=== PATIENT | male | born 1945 | race Caucasian/White ===

== ENCOUNTER → 2018-02-15 | Outpatient (CLI) | payer OTHER | LOC: LAB 15:47 | PROVIDERS: ATTEND Internal Medicine Gastroenterology | DX: K64.0 First degree hemorrhoids (principal) | CPT/HCPCS: 82274 ==

== ENCOUNTER 2023-05-30 11:47 | Inpatient (IN) ==
--- NOTE | 2023-05-30 12:09 | DR.EXTPAIN ---
HPI Time seen Time Seen by Provider: 05/30/23 12:08 Complaint/Symptoms Chief Complaint Doctor Comments: 78 y/o male presents with 3-4 weeks of left inguinal swelling, getting worse. Saw Dr Zuñiga, 05/10, was referred to Dr Morse. Saw him 5 days ago, per his note, he diagnosed recurrent L inguinal he rnia, adjacent to prior hernia repair. Ordered CT, not done yet. Pt with persistent pain, swelling of left groin region. Having erythema develop. Pain is sharp, does not radiate, worse with palpation. Pain helped with percocet. Denies nausea, vomiting. Moving bowels, but having degree of constipation. No fever, had episode of chills after starting percocet, few days ago. Nurses notes reviewed Nurses Notes Review: Yes Source History Provided: Patient and Significant Other PMH PMH Past Medical History: Yes Past Medical History Comment: HTN, hypothyroidism Past Surgical History: Yes Past Surgical History Comment: Appendectomy, tonsillectomy, abd hernia Family History History of Family Medical Conditions: Yes Family Medical History: Hypertension Social History Does patient currently use any type of tobacco product: Yes Type of Tobacco Use: Cigarettes Alcohol Use: None Do you use any recreational Drugs:: No ROS Review of Systems Constitutional: No Symptoms Reported Eyes: No Symptoms Reported ENTM: No Symptoms Reported Respiratoy: No Symptoms Reported Cardiovascular: No Symptoms Reported Gastrointestinal/Abdominal: See HPI Genitourinary: No Symptoms Reported Neurological: No Symptoms Reported Musculoskeletal: No Symptoms Reported Integumentary: No Symptoms Reported All Other Systems: Reviewed and Negative PE Vital Signs Vitals: Vital Signs Temperature 97.7 F Pulse Rate [Left] 77 Pulse Rate 77 Respiratory Rate 19 Blood Pressure 135/65 O2 Sat by Pulse Oximetry 94 General General Appearance: Alert and In No Apparent Distress Eyes Eye exam: PERRL and EOMI Neck Neck Exam: Normal Inspection Respiratory Respiratory Exam: Normal Lung Sounds Bilat; negative Accessory Muscle Use or Respiratory Distress Cardiovascular Cardiovascular Exam: Regular Rate, Normal Rhythm and Normal Heart Sounds Abdominal Exam Abdominal Exam: Normal Bowel Sounds, Soft and Tenderness (L groin - + large soft tissue swelling, with ring of erythema around it. ) Extremities Extremities Exam: Normal Inspection; negative Edema Neurological Neurological Exam: Alert, Oriented X3 and CN II-XII Intact; negative Motor Sensory Deficit Skin Skin Exam: Warm and Dry COURSE Treatment Treatment: 78 y/o male with worsening swelling, erythema of LLQ/groin region. Dx'd with L inguinal hernia 5 days ago. W/u initiated. Pt given IV fluids. 1400 - was planning to admit with a probable L inguinal incarcerated hernia. Official CT report states more likely intra abdominal wall abscess with large air collection. Surgery consulted, Dr Clemens coming to see. Given IV zosyn for antibiotic coverage. Will admit to his attending, Dr Zuñiga. [facility] Labs Reviewed Laboratory Results Reviewed?: Yes Result Diagrams: 05/30/23 12:27 05/30/23 12:27 Laboratory: WBC 7.9 X10^3/uL (3.6-10.0) 05/30/23 12: RBC 4.24 X10^6/uL (4.7-6.0) L 05/30/23 12: Hgb 12.3 g/dL (13.5-18.0) L 05/30/23 12: Hct 36.3 % (42.0-54.0) L 05/30/23 12: MCV 85.7 fL (80.0-100.0) 05/30/23 12: MCH 29.0 pg (27.0-34.0) 05/30/23 12: MCHC 33.8 g/dL (33.0-35.0) 05/30/23 12: RDW 15.1 % (11.6-16.5) 05/30/23 12: Plt Count 226 X10^3/uL (150.0-450.0) 05/30/23 12: MPV 8.4 fL (7.4-11.0) 05/30/23 12: Neut % (Auto) 86.3 % (42.0-75.0) H 05/30/23 12: Lymph % (Auto) 6.0 % (21.0-51.0) L 05/30/23 12: Humphreys % (Auto) 7.1 % (0.0-13.0) 05/30/23 12: Eos % (Auto) 0.5 % (0.9-2.9) L 05/30/23 12: Baso % (Auto) 0.1 % (0.2-1.0) L 05/30/23 12:27 Neut # (Auto) 6.8 x10^3/uL (2.2-4.8) H 05/30/23 12:27 Lymph # (Auto) 0.5 X10^3/uL (1.3-2.9) L 05/30/23 12:27 Humphreys # (Auto) 0.6 x10^3/uL (0.3-0.8) 05/30/23 12:27 Eos # (Auto) 0.0 x10^3/uL (0.0-0.2) 05/30/23 12:27 Baso # (Auto) 0.0 X10^3/uL (0.0-0.1) 05/30/23 12:27 Absolute Nucleated RBC 0.2 /100WBC 05/30/23 12:27 Sodium 134 mmol/L (136-145) L 05/30/23 12:27 Corrected Sodium 135 mmol/L (136-145) L 05/30/23 12:27 Potassium 4.1 mmol/L (3.5-5.1) 05/30/23 12:27 Chloride 98 mmol/L (98-107) 05/30/23 12:27 Carbon Dioxide 27.6 mmol/L (21-32) 05/30/23 12:27 BUN 30 mg/dL (7-18) H 05/30/23 12:27 Creatinine 1.28 mg/dL (0.70-1.30) 05/30/23 12:27 Est GFR (MDRD) Af Amer > 60 (>60) 05/30/23 12:27 Est GFR (MDRD) Non-Af 58 (>60) L 05/30/23 12:27 Glucose 128 mg/dL (65-99) H 05/30/23 12:27 Calcium 8.8 mg/dL (8.5-10.1) 05/30/23 12:27 Corrected Calcium 9.8 mg/dL (8.5-10.1) 05/30/23 12:27 Total Bilirubin 0.20 mg/dL (0.2-1.0) 05/30/23 12:27 AST 27 Units/L (15-37) 05/30/23 12:27 ALT 25 Units/L (12-78) 05/30/23 12:27 Alkaline Phosphatase 82 Units/L (46-116) 05/30/23 12:27 Total Protein 7.1 g/dL (6.4-8.2) 05/30/23 12:27 Albumin 2.7 g/dL (3.4-5.0) L 05/30/23 12:27 Globulin 4.4 g/dL (2.5-4.5) 05/30/23 12:27 Albumin/Globulin Ratio 0.6 Ratio (1.1-2.1) L 05/30/23 12:27 Labs acceptable. XRAY XRAY Interpreted by: Both X-ray Results: CXR - without acute abnromalities. CT abd/pelvis - see comments under course. EKG Rate: 58 [place]: Normal Rhythm: SB and PVCs Block: RBBB (incomplete) ST: Nonsp Opioid Opioid Risk Tool Total: 0 Total Score Risk Category: Low Risk Copyright: Moncho YARBROUGH predicting aberrant behaviors Discharge Plan Diagnosis Discharge Problem: Abdominal wall abscess Discharge Plan Patient Disposition: ADMITTED INPATIENT Condition: Stable
[2023-05-30 12:18] VITALS: BMI 24.0
[2023-05-30] MEDS ORDERED: NS 500 ML IV 500 ML IV ONE ×2 (12:19→12:20)
[2023-05-30 12:34] LABS: MEAN CORPUSCULAR VOLUME 85.7 fL (80.0-100.0); WHITE BLOOD COUNT 7.9 X10^3/uL (3.6-10.0)
[2023-05-30 12:37] LABS: BASOPHILS % (AUTO) 0.1 % (0.2-1.0); EOSINOPHILS % (AUTO) 0.5 % (0.9-2.9); HEMATOCRIT 36.3 % (42.0-54.0); HEMOGLOBIN 12.3 g/dL (13.5-18.0); LYMPHOCYTES # (AUTO) 0.5 X10^3/uL (1.3-2.9); MEAN CORPUSCULAR HGB CONC 33.8 g/dL (33.0-35.0); MEAN PLATELET VOLUME 8.4 fL (7.4-11.0); MONOCYTES # (AUTO) 0.6 x10^3/uL (0.3-0.8); MONOCYTES % (AUTO) 7.1 % (0.0-13.0); NEUTROPHILS # (AUTO) 6.8 x10^3/uL (2.2-4.8); NEUTROPHILS % (AUTO) 86.3 % (42.0-75.0); PLATELET COUNT 226 X10^3/uL (150.0-450.0); RED BLOOD COUNT 4.24 X10^6/uL (4.7-6.0); RED CELL DISTRIBUTION WIDTH 15.1 % (11.6-16.5)
[2023-05-30 12:47] LABS: ALANINE AMINOTRANSFERASE 25 Units/L (12-78); ALBUMIN 2.7 g/dL (3.4-5.0); ALKALINE PHOSPHATASE 82 Units/L (46-116); ASPARTATE AMINO TRANSFERASE 27 Units/L (15-37); BLOOD UREA NITROGEN 30 mg/dL (7-18); CALCIUM 8.8 mg/dL (8.5-10.1); CARBON DIOXIDE 27.6 mmol/L (21-32); CHLORIDE 98 mmol/L (98-107); COR CA(FOR HYPOALB) 9.8 mg/dL (8.5-10.1); COR NA(FOR HYPERGLY) 135 mmol/L (136-145); CREATININE 1.28 mg/dL (0.70-1.30); GLUCOSE 128 mg/dL (65-99); POTASSIUM 4.1 mmol/L (3.5-5.1); SODIUM 134 mmol/L (136-145); TOTAL PROTEIN 7.1 g/dL (6.4-8.2); eGFR NON BLACK RACES 58 (>60)
[2023-05-30] MEDS ORDERED: OMNIPAQUE 350 mg/mL 100 mL BTL 100 ML ONE (12:53)
[2023-05-30] MEDS ORDERED: ZOSYN VIAL 3.375 GRAMS 3.375 G in NS 100 ML IV 100 ML IV ONE (13:48)
--- NOTE | 2023-05-30 13:48 | CT ---
HISTORYLT INGUINAL SWELLINGSTUDYABDOMEN/PELVIS WITH CONCOMPARISONNone availableTECHNIQUEMultiple axial images of the abdomen and pelvis were obtained from the lung bases to the pubic symphysis after the administration of IV contrast. Dose reduction techniques including Automated Exposure Control (AEC) and adjustment of mA and kV were utilized.FINDINGS[There is moderate subsegmental atelectasis and scarring within the right and left lower lobes. Heart size is at the upper limits of normal. No pericardial effusion.No focal hepatic lesion. Gallbladder, bile ducts, spleen, pancreas and adrenal glands are normal. The right kidney demonstrates no nephrolithiasis, hydronephrosis or solid mass. Very mild perinephric stranding of the right kidney. Left kidney demonstrates multiple cysts, the largest cyst measures approximately 6.3 cm on axial image 28. No ureteral stone or hydronephrosis.Upper GI tract demonstrates no evidence of mass or obstruction. There is mild fluid distention of the small bowel.Urinary bladder is dilated with a moderate-sized left-sided bladder diverticulum. There is thickening of the left lateral bladder wall seen on axial image 70 with an air and fluid collection noted abutting the left bladder wall and along the undersurface of the sigmoid colon. Prostate gland is enlarged with central dystrophic calcification. No pelvic lymphadenopathy or free fluid.The rectum is normal. Distal colonic diverticulosis without evidence of acute diverticulitis. Mild increased fecal material throughout the colon.There is a small right-sided inguinal hernia containing a nonobstructed loop of small bowel.There is a large amount of gas and fluid left lower abdominal wall/rectus abdominus muscle with surrounding inflammatory change. Overall the collection measures approximately 9.1 x 9.4 x 5.5 cm on axial image 73 and sagittal image 23.Abdominal aorta is normal in caliber.Review of bone windows demonstrates no acute osseous abnormality.IMPRESSIONLarge volume of free air with small amount fluid within lower abdominal wall with moderate left inguinal subcutaneous edema is suspicious for necrotizing fluid collection/abscess within the left lower abdominal wall.Dilated urinary bladder with a moderate-sized left lateral bladder diverticulum. There is thickening of the left lateral bladder wall with a non localizing collection of gas extending along the left lateral bladder wall raising the suspicion for sequela previous diverticulitis and/or colovesicular fistula, clinical correlation is needed. The air-fluid collection adjacent to the bladder wall potentially has a thin peripheral area of enhancement communicating with the above-described left lower abdominal wall air and fluid collection.No definite loop of small large bowel ascending into the left inguinal hernia.Small right-sided inguinal hernia containing a nonobstructed loop small bowel.Colonic diverticulosis without evidence of diverticulitis. Mild constipation.Multiple additional chronic, incidental findings as described above.Electronically signed by: LULU WILLETT (May 30, 2023 13:47:29)
[2023-05-30] MEDS ORDERED: NS IRRIGATION* 500 ML IR ONE (14:10)
[2023-05-30] MEDS ORDERED: NS 100 ML IV 100 ML ONE (14:20)
[2023-05-30] MEDS ORDERED: ZOSYN VIAL 3.375 GRAMS IV ONE (14:20)
[2023-05-30] MEDS ORDERED: D5 1/2 NS 1,000 ML 1,000 ML IV ONE (14:21)
--- NOTE | 2023-05-30 14:32 | EKG ---
Test Reason : pre-op Blood Pressure : */* mmHG Vent. Rate : 58 BPM Atrial Rate : 58 BPM P-R Int : 148 ms QRS Dur : 124 ms QT Int : 418 ms P-R-T Axes : 33 -6 32 degrees QTc Int : 410 ms Sinus bradycardia with occasional premature ventricular complexes Right bundle branch block Abnormal ECG No previous ECGs available Confirmed by Selvin Solomon ([id number]) on 05/31/2023 12:53:06 PM Referred By: Confirmed By: Selvin Solomon
[2023-05-30] MEDS: D5 1/2 NS 1,000 ML 1,000 ML IV SCH (14:46)
[2023-05-30] MEDS ORDERED: ZOFRAN INJ 4 MG VIAL ONE (16:49)
[2023-05-30] MEDS ORDERED: DIPRIVAN VIAL 20 ML ONE (16:49)
[2023-05-30] MEDS ORDERED: PEPCID 20 MG VIAL ONE (16:49)
[2023-05-30] MEDS ORDERED: FENTANYL VIAL INJ 250 mcg ONE (16:49)
[2023-05-30] MEDS ORDERED: BRIDION ONE (16:49)
[2023-05-30] MEDS ORDERED: ZEMURON 100 MG VIAL ONE (16:49)
[2023-05-30] MEDS ORDERED: PROVENTIL NEB TX 0.083% 2.5MG/ 3ML NEB ONE (16:50)
[2023-05-30] MEDS ORDERED: VERSED ONE (16:50)
[2023-05-30] MEDS ORDERED: PROVENTIL NEB TX 0.083% 2.5MG/ 3ML ONE (16:52)
[2023-05-30] MEDS ORDERED: XYLOCAINE 2 % (PLAIN) ONE (16:54)
[2023-05-30] MEDS ORDERED: MARCAINE/EPINEPHRINE ONE (17:12)
[2023-05-30] MEDS ORDERED: BETADINE SOLN ONE (17:13)
--- NOTE | 2023-05-30 17:16 | DR.CONSULT ---
CONSULT Consultation for Day of: Date: 05/30/23 Chief Complaint Chief Complaint: Painful swelling left inguinal region. Allergies Allergies Allergy/AdvReac Type Severity Reaction Status Date / Time No Known Allergies Allergy Verified 11/26/22 07:42 History of Present Illness History of Present Illness: 78 year old male otherwise healthy who had been seen initially by the General Surgery Department in [place] for possible left inguinal hernia. CT scan was ordered but not been completed. He presented to the emergency room with redness and swelling and tenderness of this area in the left groin. CT scan without contrast obtained showed an abscess in the left groin. Questionable bladder diverticulum but no obvious connection the abscess . I am unsure as to the etiology of this. History of diverticulosis but no history of diverticulitis . No recent trauma or foreign body to this area. Gives history of a left inguinal hernia repair in the past which he says has mesh but I see no mess on the CT scan . Last meal or anything by mouth at 0800 this AM. Past Medical History Past Medical History: Hypertension and Hypothyroidism Past Surgical History Surgical History: Appendectomy and Tonsillectomy Family History Family Medical History: Cancer Social History Does patient currently use any type of tobacco product: Yes Have you used tobacco products in the last 12 months: Yes Type of Tobacco Use: Cigarettes How many years tobacco product used: 50 Does any household member use tobacco: Yes Alcohol Use: Rarely Drug Use: None Medications Home Medications: No Known Allergies Allergy (Verified 11/26/22 07:42) CONTINUE taking the following medications tamsulosin 0.4 mg capsule 0.4 mg PO BID 05/30/23 [History] Review of Systems Constitutional: See HPI Eyes: No Symptoms Reported ENT: No Symptoms Reported Respiratory: No Symptoms Reported Cardiovascular: No Symptoms Reported Gastrointestinal: No Symptoms Reported Genitourinary: No Symptoms Reported Musculoskeletal: No Symptoms Reported Skin: See HPI Neurological: No Symptoms Reported Physical Exam Vital Signs: Vital Signs Temperature 97.4 F Temperature 97.7 F Pulse Rate [Left] 55 Pulse Rate [Left] 77 Pulse Rate 77 Respiratory Rate 18 Respiratory Rate 19 Blood Pressure [Left Arm] 160/70 Blood Pressure 135/65 O2 Sat by Pulse Oximetry 95 O2 Sat by Pulse Oximetry 94 Oriented: Normal, Time, Person and Place Eyes: Normal Ear: Normal Nose: Normal Throat: Normal Respiratory: Clear Throughout Cardiovascular: Normal : Normal Auscultation: Bowel Sounds: Normal Palpation: Normal Tenderness: Normal Skin: Other (12 x 10 x 4 cm abscess left groin with redness and tenderness. ) Musculoskeletal: Normal Psychiatric: Normal Mood Description: Calm Affect: Normal Speech Pattern: Clear Plan (1) Abdominal wall abscess: Status: Acute Plan: Because I am not completely sure of the etiology I will plan exploratory laparoscopy to see if anything from the abdomen connects to the abscess of the left groin . I will deal with that as necessary Will also plan incision and drainage and packing of the left inguinal abscess . Risks and benefits discuss with he and his sister. He agreed to proceed .
[2023-05-30] MEDS ORDERED: DILAUDID INJ IVP PRN (17:22)
[2023-05-30] MEDS ORDERED: BENADRYL INJ 50 MG VIAL IVP PRN (17:22)
[2023-05-30] MEDS ORDERED: REGLAN INJ 10 MG VIAL IVP PRN (17:22)
[2023-05-30] MEDS ORDERED: BARHEMSYS INJ IVP PRN (17:22)
[2023-05-30] MEDS ORDERED: ZOFRAN INJ 4 MG VIAL IVP PRN (17:22)
[2023-05-30] MEDS ORDERED: LR 1,000 ML IV 1,000 ML IV ONE (17:29)
[2023-05-30] MEDS ORDERED: SUPRANE ONE (17:44)
[2023-05-30] MEDS ORDERED: OFIRMEV IV 1000 MG VIAL 1,000 MG/100 ML VIAL IV ONE (18:10)
[2023-05-30] MEDS ORDERED: EPHEDRINE SULFATE INJ ONE (18:11)
--- NOTE | 2023-05-30 18:33 | OR.IMMED ---
IMMEDIATE POST-OP NOTE Immediate Post-Op Note Pre-Op Diagnosis: Left inguinal abscess Post-Op Diagnosis: Same , etiology still unknown, possibility exists this could have originated from diverticula of sigmoid colon with close proximity to this area Procedure: Exploratory laparoscopy , incision and drainage of large abscess left inguinal region with placement of wound vacuum. Description of Procedure: see operative report Surgeon/Rear Load Truck Driver: Jayleen, Findings: Large abscess , primarily air in the left inguinal region, very little pus, No leaking of air from area with active laparoscopy, sigmoid colon plastered to the back of the left inguinal region but obvious inflammation or diverticulitis . Specimens Removed: Culture of abscess area Estimated Blood Loss: minimal Complications: none Progress Notes: To floor , continue IV antibiotics and wound vacuum.
[2023-05-30 19:09] LABS: BILIRUBIN,URINE NEGATIVE (NEGATIVE); BLOOD/HEMOGLOBIN,URINE 2+ (NEGATIVE); GLUCOSE, URINE NEGATIVE (NEGATIVE); KETONES,URINE NEGATIVE (NEGATIVE); LEUKOCYTE ESTERASE ,URINE NEGATIVE (NEGATIVE); NITRITES,URINE NEGATIVE (NEGATIVE); PROTEIN,URINE 2+ (NEGATIVE); UROBILINOGEN,URINE NORMAL (NORMAL)
[2023-05-30 19:10] LABS: APPEARANCE,URINE CLEAR (CLEAR); COLOR,URINE YELLOW (YELLOW)
[2023-05-30 19:22] LABS: BACTERIA,URINE NEGATIVE /HPF (NEGATIVE); SQUAMOUS EPITHELIAL CELL,UR RARE /HPF (NEGATIVE)
[2023-05-30] MEDS: ZOSYN VIAL 3.375 GRAMS 3.375 G in NS 100 ML IV 100 ML IV SCH (19:50)
[2023-05-30] MEDS: FLOMAX PO SCH (20:31)
[2023-05-31] MEDS: D5 1/2 NS 1,000 ML 1,000 ML IV SCH ×5 (01:20→22:01)
[2023-05-31 05:18] LABS: BASOPHILS # (AUTO) 0.1 X10^3/uL (0.0-0.1); BASOPHILS % (AUTO) 1.1 % (0.2-1.0); EOSINOPHILS # (AUTO) 0.1 x10^3/uL (0.0-0.2); EOSINOPHILS % (AUTO) 2.3 % (0.9-2.9); HEMATOCRIT 33.7 % (42.0-54.0); HEMOGLOBIN 11.5 g/dL (13.5-18.0); LYMPHOCYTES # (AUTO) 0.9 X10^3/uL (1.3-2.9); LYMPHOCYTES % (AUTO) 16.6 % (21.0-51.0); MEAN CORPUSCULAR HEMOGLOBIN 29.2 pg (27.0-34.0); MEAN CORPUSCULAR HGB CONC 34.1 g/dL (33.0-35.0); MEAN CORPUSCULAR VOLUME 85.6 fL (80.0-100.0); MEAN PLATELET VOLUME 8.7 fL (7.4-11.0); MONOCYTES # (AUTO) 0.4 x10^3/uL (0.3-0.8); MONOCYTES % (AUTO) 8.5 % (0.0-13.0); NEUTROPHILS # (AUTO) 3.8 x10^3/uL (2.2-4.8); NEUTROPHILS % (AUTO) 71.5 % (42.0-75.0); PLATELET COUNT 199 X10^3/uL (150.0-450.0); RED BLOOD COUNT 3.94 X10^6/uL (4.7-6.0); RED CELL DISTRIBUTION WIDTH 15.3 % (11.6-16.5); WHITE BLOOD COUNT 5.3 X10^3/uL (3.6-10.0)
[2023-05-31 05:31] LABS: ALANINE AMINOTRANSFERASE 25 Units/L (12-78); ALBUMIN 2.4 g/dL (3.4-5.0); ALKALINE PHOSPHATASE 78 Units/L (46-116); ASPARTATE AMINO TRANSFERASE 22 Units/L (15-37); BLOOD UREA NITROGEN 21 mg/dL (7-18); CALCIUM 8.5 mg/dL (8.5-10.1); CARBON DIOXIDE 29.3 mmol/L (21-32); CHLORIDE 104 mmol/L (98-107); COR CA(FOR HYPOALB) 9.8 mg/dL (8.5-10.1); CREATININE 0.89 mg/dL (0.70-1.30); GLUCOSE 97 mg/dL (65-99); POTASSIUM 4.6 mmol/L (3.5-5.1); SODIUM 139 mmol/L (136-145); TOTAL PROTEIN 6.4 g/dL (6.4-8.2); eGFR NON BLACK RACES > 60 (>60)
--- NOTE | 2023-05-31 05:39 | RAD ---
PROCEDURE: Chest X-ray 1 View .HISTORY: Groin pain and swelling. Preoperative study.TECHNIQUE: AP portable upright done at 2:17 p.m..COMPARISON: None .TECHNICAL QUALITY: Satisfactory .FINDINGS:Normal size heart .Mediastinum and hilar regions show no masses or lymphadenopathy .Normal central vascularity .No pulmonary consolidation, masses, pleural fluid, or pneumothorax .No acute bony abnormality .IMPRESSION:No active cardiopulmonary disease .Electronically signed by: Teddy Yang (May 31, 2023 05:37:57)
[2023-05-31] MEDS: ZOSYN VIAL 3.375 GRAMS 3.375 G in NS 100 ML IV 100 ML IV SCH ×3 (06:01→21:04)
[2023-05-31] MEDS: HYTRIN PO SCH (08:14)
[2023-05-31] MEDS: FLOMAX PO SCH ×2 (08:14→20:13)
[2023-05-31] MEDS: PROSCAR PO SCH (08:14)
[2023-05-31] MEDS: SYNTHROID 150 mcg TAB PO SCH (08:14)
[2023-05-31] MEDS: LOVENOX INJ 40 MG SYR SC SCH (09:41)
--- NOTE | 2023-05-31 11:44 | DR.OPNOTE ---
OP NOTE Pre-Op Diagnosis: left groin abscess, etiolgy unknown Post-Op Diagnosis: left groin abscess ,possibly originate from sigmoid divertriculosis/ -itis Procedure Date Date Of Procedure: 05/30/23 Procedure: PROCEDURE: Exploratory laparoscopy, incision and drainage left groin abscess, Place wound vacuum left groin wound NARRATIVE : The patient was taken to the operative suite and placed in the supine position. General Endotracheal anesthesia induced. The entire abdomen and groins were prepped and draped in sterile fashion. Time out for the procedure obtained . A 5 mm incision was made above the umbilicus in the midline and an optical trocar used in to enter the abdominal cavity. The abdomen insufflated to 15 mm of mercury with carbon dioxide. 5mm trocar placed in the right lower quadrant . The patient's sigmoid colon was plastered against the abdominal wall over the area of the abscess. There was no redness or inflammation here. There did appear to be diverticulosis and patient is known to have significant diverticulosis of this area from recent colonoscopy. At this point the abscess in the left groin was incised . There was mainly air in this. No air bubbled from the abdomen with the laparoscopy and insufflation There was no stool or urine noted. Wound irrigated with saine . Cultures of the wound obtained . Black foam placed in the wound. This covered with an adhesive sheet. A 1-inch square portion of the adhesive sheet was removed over the foam and the circular trackpad applied over the opening and placed on suction. All trocars removed from the abdomen and the insufflation was released through the trocars prior to that. Laparoscopic incisions closed with interrupted 3-0 subcutaneous Vicryl sutures and the skin closed with steri strips . Patient tolerated this well and was extubated and taken to PACU in good condition. Type of Anesthesia: General Anesthetic w/ETT Findings: Abscess cavity only had air and small amount of purulence , wound 9x 5x 4 cm Specimen/Pathology: cultures obtained of abscess cavity. Type of Fluids Used:: Lactated Ringers EBL: minimal Drains/Tubes Comment: wound vacuum placed, Cultures: yes Complications:: none Needle/Sponge Count:: correct Disposition/Condition: Pt. tolerated procedure without difficulty. Extubated and taken to PACU in stable condition.
--- NOTE | 2023-05-31 15:08 | DR.H&P ---
H&P - History & Physical for Day of: H&P Date: 05/30/23 - Chief Complaint Chief Complaint: LEFT GROIN PAIN AND SWELLING - History of Present Illness History of Present Illness: IS A 78 YEAR OLD PATIENT OF OURS. HE PRESENTED TO THE ER WITH COMLAINTS OF LEFT INGUINAL SWELLING AND PAIN FOR THE PAST 3-4 WEEKS. HE REPORTS THAT PAIN HAS PROGRESSIVELY GOTTEN WORSE. HE REPORTS INITIALLY NOTICING A LUMP ABOUT 6-8 WEEKS AGO. HE WAS SEEN IN OUR OFFICE AND REFERRED TO , GENERAL SURGEON FOR EVALUATION OF AN INGUINAL HERNIA TAT WAS NOT REDUCIBLE. HE WAS EVALUATED BY ON 05/25/23. ORDERED AN ABDOMEN/PELVIS CT WITH CONTRAST. CT HAD NOT BEEN DONE YET. PATIENTS PMH INCLUDES: HTN, HYPOTHYROIDISM, DIVERTICULOSIS, APPENDECTOMY, TONSILLECTOMY, AND INGUINAL HERNIA REPAIR. EXAMINATION REVEALED ERYTHEMA TO THE AREA. HE DESCRIBES PAIN SHARP AND WORSE WITH PALPATION. HE RATED PAIN A 6/10. HE ADMITS THAT PERCOCET DOES HELP WITH PAIN. HE DENIES NAUSEA, VOMITING, AND MILD CONSTIPATION. ON ARRIVAL TO THE ER, HIS VITALS WERE: 97.4-55-18-95%-160/70. LABS WERE OBTAINED. WBC 7.9, RBC 4.24, HGB 12.3, HCT 36.3, PLT COUNT 226, SODIUM 134, POTASSIUM 4.1, CHLORIDE 98, BUN 30, CREATININE 1.28, GLUCOSE 128, CALCIUM 8.8, TOTAL BILI 0.20, AST 27, ALT 25, ALK PHOS 82, TOTAL PROTEIN 7.1, ALBUMIN 2.7. A URINALYSIS WAS OBTAINED AND REVEALED: WBC NONE SEEN, RBC 3-5, LEUKOCYTES NEBATIVE, BACTERIA NEGATIVE. AN ABDOMEN/PELVIS CT WITH CONTRAST WAS OBTAINED AND REVEALED: Large volume of free air with small amount fluid within lower abdominal wall with moderate left inguinal subcutaneous edema is suspicious for necrotizing fluid collection/abscess within the left lower abdominal wall. Dilated urinary bladder with a moderate-sized left lateral bladder diverticulum. There is thickening of the left lateral bladder wall with a non localizing collection of gas extending along the left lateral bladder wall raising the suspicion for sequela previous diverticulitis and/or colovesicular fistula, clinical correlation is needed. The air-fluid collection adjacent to the bladder wall potentially has a thin peripheral area of enhancement communicating with the above-described left lower abdominal wall air and fluid collection. No definite loop of small large bowel ascending into the left inguinal hernia. Small right-sided inguinal hernia containing a nonobstructed loop small bowel. Colonic diverticulosis without evidence of diverticulitis. Mild constipation. CHEST XRAY OBTAINED AND REVEALED: No active cardiopulmonary disease. EKG REVEALED: SINUS BRADYCARDIA WITH OCCASIONAL PREMATURE VENTRICULAR COMPLEXES. HR 58 BPM. WAS CONSULTED AND PLANNED FOR AN EXPLORATORY LAPAROSCOPY AND POSSIBLE I&D OF THE LEFT INGUINAL ABSCESS. IN THE ER, HE WAS GIVEN A NORMAL SALINE BOLUS, ZOFRAN 3.375G IV X 1, PEPCID 20MG IV X 1, ZOFRAN 4MG IV X 1, PROVENTIL NEB X 1. HE WAS ADMITTED TO THE HOSPITAL FOR FURTHER EVALUATION AND TREATMENT OF LEFT ABDOMINAL WALL ABSCESS. HE WAS STARTED ON D51/2 NS AT 100 ML/HR, LOVENOX 40MG SC DAILY, AND ZOSYN 3.375G IV TID. HIS HOME MEDICATIONS OF PROSCAR, SYNTHROID, FLMAX, AND HYTRIN WERE RESUMED. WILL TAKE PATIENT TO OR. OTHERWISE, WE WILL FOLLOW-UP WITH AM LABS AND CONTINUE TO MONITOR. TIME SPENT ON CLINICAL ASSESSMENT, REVIEWING LABS AND IMAGING, DECISION MAKING, AND DOCUMENTATION GREATER THAN 75 MINUTES. - Past Medical History Past Medical History: Hypertension, Hypothyroidism - Past Surgical History Surgical History: Appendectomy, Tonsillectomy - Family History Family Medical History: Cancer - Social History Does patient currently use any type of tobacco product: Yes Have you used tobacco products in the last 12 months: Yes Type of Tobacco Use: Cigarettes How many years tobacco product used: 50 Does any household member use tobacco: Yes Alcohol Use: Rarely Drug Use: None - Review of Systems Constitutional: Weakness Eyes: No Symptoms Reported ENT: No Symptoms Reported Respiratory: No Symptoms Reported Cardiovascular: Other (LEFT INGUINAL PAIN ) Gastrointestinal: No Symptoms Reported Genitourinary: See HPI Musculoskeletal: No Symptoms Reported Skin: No Symptoms Reported Neurological: No Symptoms Reported - Physical Exam Vital Signs: Vital Signs Temperature 99.8 F Temperature 97.7 F Pulse Rate [Left] 52 Pulse Rate [Left] 50 Pulse Rate 52 Respiratory Rate 20 Respiratory Rate 16 Blood Pressure [Left Arm] 147/68 Blood Pressure [Left Arm] 131/61 O2 Sat by Pulse Oximetry 97 O2 Sat by Pulse Oximetry 96 O2 Sat by Pulse Oximetry 96 Oriented: Normal, Time, Person, Place Eyes: Normal Ear: Normal Nose: Normal Throat: Normal Respiratory: Clear Throughout Skin: Normal Musculoskeletal: Normal Psychiatric: Normal Affect: Normal Speech Pattern: Clear - Assessment/Plan (1) Abdominal wall abscess Status: Acute Plan: ADMIT, CONSULT , GENERAL SURGEON, D51/2 NS AT 100 ML/HR, LOVENOX 40MG SC DAILY, AND ZOSYN 3.375G IV TID. HIS HOME MEDICATIONS OF PROSCAR, SYNTHROID, FLMAX, AND HYTRIN WERE RESUMED. (2) Abdominal pain Qualifiers: Abdominal location: generalized Qualified Code(s): R10.84 - Generalized abdominal pain Status: Acute (3) Left inguinal hernia Status: None (4) HTN (hypertension) Qualifiers: Hypertension type: primary hypertension Qualified Code(s): I10 - Essential (primary) hypertension Status: Acute Plan: CONTINUE PROSCAR (5) Hypothyroidism Qualifiers: Hypothyroidism type: acquired Qualified Code(s): E03.9 - Hypothyroidism, unspecified Status: Acute (6) Diverticulosis Status: Acute (7) BPH (benign prostatic hyperplasia) Qualifiers: Lower urinary tract symptom detail: unspecified Status: Acute Plan: CONTINUE FLOMAX AND HYTRIN - Allergies Allergies/Adverse Reactions: Allergies Allergy/AdvReac Type Severity Reaction Status Date / Time No Known Allergies Allergy Verified 11/26/22 07:42 - Medications Home Medications: Home Medications Medication Instructions Recorded Confirmed tamsulosin 0.4 mg capsule 0.4 mg PO BID 05/30/23 05/30/23 Previous Rx's Medication Instructions Recorded finasteride 5 mg tablet 5 mg PO QDAY #30 tabs 05/25/23 levothyroxine 150 mcg tablet 150 mcg PO QDAY #30 tabs 05/25/23 meloxicam 15 mg tablet 15 mg PO QDAY #30 tabs 05/25/23 terazosin 5 mg capsule 5 mg PO QDAY #30 caps 05/25/23
--- NOTE | 2023-05-31 18:55 | NOTE.SOAP ---
Soap Note Note for Day of Date of Exam: 05/31/23 Subjective Data Subjective Data: S/p left groin drainage of abscess and placement of wound vacuum. Doing well. Objective Data Temperature: 97.8 F Pulse Rate: 48 Respiratory Rate: 18 Blood Pressure: 158/71 O2 Sat by Pulse Oximetry: 96 Objective Data: Wound vacuum in place and working well. Hgb=11.5,WBC= 5.3 Assessment Assessment: S/P I and D left groin abscess , possibly related to diverticular disease. Gram + cocci and gram - rods growing in wound culture. Plan Plan: Continue IV antibiotics and wound vacuum. Arrange for Home Health with wound vacuum.
[2023-06-01] MEDS: D5 1/2 NS 1,000 ML 1,000 ML IV SCH ×4 (01:51→22:35)
[2023-06-01] MEDS: ZOSYN VIAL 3.375 GRAMS 3.375 G in NS 100 ML IV 100 ML IV SCH ×3 (05:05→21:00)
[2023-06-01 06:24] LABS: BASOPHILS # (AUTO) 0.1 X10^3/uL (0.0-0.1); BASOPHILS % (AUTO) 3.1 % (0.2-1.0); EOSINOPHILS # (AUTO) 0.5 x10^3/uL (0.0-0.2); EOSINOPHILS % (AUTO) 9.9 % (0.9-2.9); HEMATOCRIT 31.8 % (42.0-54.0); HEMOGLOBIN 10.7 g/dL (13.5-18.0); LYMPHOCYTES # (AUTO) 0.7 X10^3/uL (1.3-2.9); LYMPHOCYTES % (AUTO) 14.5 % (21.0-51.0); MEAN CORPUSCULAR HEMOGLOBIN 28.5 pg (27.0-34.0); MEAN CORPUSCULAR HGB CONC 33.6 g/dL (33.0-35.0); MEAN CORPUSCULAR VOLUME 84.9 fL (80.0-100.0); MEAN PLATELET VOLUME 8.6 fL (7.4-11.0); MONOCYTES # (AUTO) 0.3 x10^3/uL (0.3-0.8); NEUTROPHILS # (AUTO) 3.1 x10^3/uL (2.2-4.8); NEUTROPHILS % (AUTO) 66.5 % (42.0-75.0); PLATELET COUNT 220 X10^3/uL (150.0-450.0); RED BLOOD COUNT 3.75 X10^6/uL (4.7-6.0); RED CELL DISTRIBUTION WIDTH 15.2 % (11.6-16.5); WHITE BLOOD COUNT 4.7 X10^3/uL (3.6-10.0)
[2023-06-01 06:38] LABS: BLOOD UREA NITROGEN 12 mg/dL (7-18); CALCIUM 8.4 mg/dL (8.5-10.1); CARBON DIOXIDE 28.5 mmol/L (21-32); CHLORIDE 105 mmol/L (98-107); CREATININE 0.82 mg/dL (0.70-1.30); GLUCOSE 95 mg/dL (65-99); POTASSIUM 4.4 mmol/L (3.5-5.1); SODIUM 140 mmol/L (136-145); eGFR NON BLACK RACES > 60 (>60)
[2023-06-01] MEDS: SYNTHROID 150 mcg TAB PO SCH (08:24)
[2023-06-01] MEDS: PROSCAR PO SCH (08:24)
[2023-06-01] MEDS: LOVENOX INJ 40 MG SYR SC SCH (08:24)
[2023-06-01] MEDS: HYTRIN PO SCH (08:24)
[2023-06-01] MEDS: FLOMAX PO SCH ×2 (08:24→20:10)
[2023-06-01] MEDS: ZESTRIL TAB 5 MG PO SCH (13:56)
--- NOTE | 2023-06-01 16:10 | NOTE.SOAP ---
Soap Note Note for Day of Date of Exam: 06/01/23 Subjective Data Subjective Data: S/p incision and drainage left groin abscess with possible connection to sigmoid colon diverticulosis. Doing well. Culture of the wound growing E.coli sensitive to most po antibiotics Objective Data Temperature: 97.9 F Pulse Rate: 52 Respiratory Rate: 18 Blood Pressure: 150/67 O2 Sat by Pulse Oximetry: 98 Objective Data: Wound vacuum in place left groin with moderate drainage. Hgb=10.7,WBC=4.7 Assessment Assessment: Abscess left groin Plan Plan: Continue IV antibiotics for now. When Home Health wound vacuum approved will d/c home with po Cipro and wound vacuum. Will need probable sigmoid colon resection in the future.
--- NOTE | 2023-06-01 22:00 | PCM.PROG ---
Progress Note - Progress Note for Day of Date of Exam: 06/01/23 - Subjective Subjective: IS A 78 YEAR OLD PATIENT OF OURS. HE CURRENTLY INPATINT STATUS. HE IS STATUS POST INCISION AND DRAINAGE OF ABSCESS TO THE LEFT GROIN AND PLACEMENT OF WOUND VACUUM. I & D WAS DONE ON 05/30/23. TODAY, PATIENT IS ALERT AND ORIENTED, LYING IN BED ON MORNING ROUNDS. HE COMPLAINS OF MILD DISCOMFORT TO AREA OF WOUND, BUT ADMITS TO SIGNIFICNAT IMPROVEMENT SINCE ADMISSION. ON EXAMINATION, HE IS BRADYCARDIC WITH HR IN THE 50s. BILATERAL LUNGS ARE CLEAR TO AUSCULTATION. ABDOMEN IS ROUND, SOFT, AND NON-TENDER WITH NORMAL BOWEL SOUNDS NOTED IN ALL QUADRANTS. WOUND VAC NOTED TO LEFT GROIN AREA. GOOD RANGE OF MOTION NOTED TO UPPER AND LOWER EXTREMITIES WITH NO EDEMA NOTED. HIS VITALS THIS M ORN ARE: 97.7-50-18-93%-178/75. LABS WERE OBTAINED. WBC 4.7, RBC 3.75, HGB 10.7, HCT 31.8, PLT COUNT 220, SODIUM 140, POTASSIUM 4.4, CHLORIDE 105, BUN 12, CREATININE 0.82, GLUCOSE 95, CALCIUM 8.4. WOUND CULTURE IS POSITIVE FOR GROWTH OF E.COLI. HE IS CURRENTLY RECEIVING D51/2 NS AT 100 ML/HR, LOVENOX 40MG SC DAILY, AND ZOSYN 3.375G IV TID. HIS HOME MEDICATIONS OF PROSCAR, SYNTHROID, FLOMAX, AND HYTRIN WERE RESUMED. HIS BLOOD PRESSURE HAS REMAINED ELEVATED THROUGHOUT THE NIGHT. TODAY, WE WILL ADD LISINOPRIL 5MG DAILY. 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 HE PLANS TO DISCHARGE PATIENT WHEN THE HOME WOUND VAC IS APPROVED. WE WILL CONTINUE WITH ANTIBIOTICS AND CURRENT PLAN OF CARE TODAY. OTHERWISE, WE WILL FOLLOW-UP WITH AM LABS AND CONTINUE WITH CURRENT PLAN OF CARE. TIME SPENT ON CLINICAL ASSESSMENT, REVIEWING LABS AND IMAGING, DECISION MAKING, AND DOCUMENTATION GREATER THAN 45 MINUTES. - Past Medical Family Social History Past Med/Fam/Surg Hx: No changes since H&P Allergies: Allergies No Known Allergies Allergy (Verified 11/26/22 07:42) - Review of Systems ROS: No change since H&P - Vital Signs and I&O's Vital Signs: Vital Signs Temperature 97.7 F Temperature 97.9 F Temperature 97.9 F Pulse Rate [Left] 50 Pulse Rate [Left] 52 Pulse Rate 52 Respiratory Rate 20 Respiratory Rate 18 Respiratory Rate 18 Blood Pressure [Left Arm] 173/78 Blood Pressure [Left Arm] 150/67 Blood Pressure 150/67 O2 Sat by Pulse Oximetry 98 O2 Sat by Pulse Oximetry 98 O2 Sat by Pulse Oximetry 98 Intake and Output: Intake & Output 05/30/23 05/31/23 06/01/23 06/02/23 11:59 11:59 11:59 11:59 Intake Total 1150 / 1150 3882 / 3882 680 / 680 Output Total 2150 / 2150 3685 / 3685 3025 / 3025 Balance -1000 / -1000 197 / 197 -2345 / -2345 - Physical Exam Oriented: Normal, Time, Person, Place Eyes: Normal Ear: Normal Nose: Normal Throat: Normal Respiratory: Diminished Cardiovascular: Bradycardia : Normal Auscultation: Bowel Sounds: Normal Palpation: Normal Tenderness: Normal Skin: Normal Musculoskeletal: Normal Psychiatric: Normal Mood Description: Calm Affect: Normal Speech Pattern: Clear, Appropriate - Laboratory and Diagnostics Result Diagrams: 06/01/23 05:28 06/01/23 05:28 Labs: 05/30/23 18:14 Groin Wound Gram Stain - Final 05/30/23 18:14 Groin Wound Culture - Final Escherichia Coli Laboratory WBC 4.7 X10^3/uL (3.6-10.0) 06/01/23 05:28 RBC 3.75 X10^6/uL (4.7-6.0) L 06/01/23 05:28 Hgb 10.7 g/dL (13.5-18.0) L 06/01/23 05:28 Hct 31.8 % (42.0-54.0) L 06/01/23 05:28 MCV 84.9 fL (80.0-100.0) 06/01/23 05:28 MCH 28.5 pg (27.0-34.0) 06/01/23 05:28 MCHC 33.6 g/dL (33.0-35.0) 06/01/23 05:28 RDW 15.2 % (11.6-16.5) 06/01/23 05:28 Plt Count 220 X10^3/uL (150.0-450.0) 06/01/23 05:28 MPV 8.6 fL (7.4-11.0) 06/01/23 05:28 Neut % (Auto) 66.5 % (42.0-75.0) 06/01/23 05:28 Lymph % (Auto) 14.5 % (21.0-51.0) L 06/01/23 05:28 [place] % (Auto) 6.0 % (0.0-13.0) 06/01/23 05:28 Eos % (Auto) 9.9 % (0.9-2.9) H 06/01/23 05:28 Baso % (Auto) 3.1 % (0.2-1.0) H 06/01/23 05:28 Neut # (Auto) 3.1 x10^3/uL (2.2-4.8) 06/01/23 05:28 Lymph # (Auto) 0.7 X10^3/uL (1.3-2.9) L 06/01/23 05:28 [place] # (Auto) 0.3 x10^3/uL (0.3-0.8) 06/01/23 05:28 Eos # (Auto) 0.5 x10^3/uL (0.0-0.2) H 06/01/23 05:28 Baso # (Auto) 0.1 X10^3/uL (0.0-0.1) 06/01/23 05:28 Absolute Nucleated RBC 0.0 /100WBC 06/01/23 05:28 Sodium 140 mmol/L (136-145) 06/01/23 05:28 Corrected Sodium TNP 06/01/23 05:28 Potassium 4.4 mmol/L (3.5-5.1) 06/01/23 05:28 Chloride 105 mmol/L (98-107) 06/01/23 05:28 Carbon Dioxide 28.5 mmol/L (21-32) 06/01/23 05:28 BUN 12 mg/dL (7-18) 06/01/23 05:28 Creatinine 0.82 mg/dL (0.70-1.30) 06/01/23 05:28 Est GFR (MDRD) Af Amer > 60 (>60) 06/01/23 05:28 Est GFR (MDRD) Non-Af > 60 (>60) 06/01/23 05:28 Glucose 95 mg/dL (65-99) 06/01/23 05:28 POC Glucose (mg/dL) 99 mg/dL (65-99) 06/01/23 20:13 Calcium 8.4 mg/dL (8.5-10.1) L 06/01/23 05:28 Corrected Calcium 9.8 mg/dL (8.5-10.1) 05/31/23 04:38 Total Bilirubin 0.20 mg/dL (0.2-1.0) 05/31/23 04:38 AST 22 Units/L (15-37) 05/31/23 04:38 ALT 25 Units/L (12-78) 05/31/23 04:38 Alkaline Phosphatase 78 Units/L (46-116) 05/31/23 04:38 Total Protein 6.4 g/dL (6.4-8.2) 05/31/23 04:38 Albumin 2.4 g/dL (3.4-5.0) L 05/31/23 04:38 Globulin 4.0 g/dL (2.5-4.5) 05/31/23 04:38 Albumin/Globulin Ratio 0.6 Ratio (1.1-2.1) L 05/31/23 04:38 Specimen Type Catherized urine 05/30/23 18:00 Urine Color Yellow (YELLOW) 05/30/23 18:00 Urine Appearance Clear (CLEAR) 05/30/23 18:00 Urine pH 5.0 (5.0 - 8.0) 05/30/23 18:00 Ur Specific [place] 1.015 (1.000-1.030) 05/30/23 18:00 Urine Protein 2+ (NEGATIVE) 05/30/23 18:00 Urine Glucose (UA) Negative (NEGATIVE) 05/30/23 18:00 Urine Ketones Negative (NEGATIVE) 05/30/23 18:00 Urine Blood 2+ (NEGATIVE) 05/30/23 18:00 Urine Nitrite Negative (NEGATIVE) 05/30/23 18:00 Urine Bilirubin Negative (NEGATIVE) 05/30/23 18:00 Urine Urobilinogen Normal (NORMAL) 05/30/23 18:00 Ur Leukocyte Esterase Negative (NEGATIVE) 05/30/23 18:00 Urine RBC 3-5 /HPF (0-3) A 05/30/23 18:00 Urine WBC None seen /HPF (0-5) 05/30/23 18:00 Ur Squamous Epith Cells Rare /HPF (NEGATIVE) 05/30/23 18:00 Urine Bacteria Negative /HPF (NEGATIVE) 05/30/23 18:00 Ur Culture Indicated? No/not indicated 05/30/23 18:00 - Plan (1) Abdominal wall abscess Status: Acute Plan: STATUS POST I&D AND PLACEMENT OF WOUND VAC, D51/2 NS AT 100 ML/HR, LOVENOX 40MG SC DAILY, AND ZOSYN 3.375G IV TID. HIS HOME MEDICATIONS OF PROSCAR, SYNTHROID, FLOMAX, AND HYTRIN WERE RESUMED. GENERAL SURGERY WILL CONTINUE TO MONITOR (2) Abdominal pain Status: Acute Qualifiers: Abdominal location: generalized Qualified Code(s): R10.84 - Generalized abdominal pain (3) Left inguinal hernia Status: None (4) HTN (hypertension) Status: Acute Qualifiers: Hypertension type: primary hypertension Qualified Code(s): I10 - Essential (primary) hypertension Plan: CONTINUE PROSCAR (5) Hypothyroidism Status: Acute Qualifiers: Hypothyroidism type: acquired Qualified Code(s): E03.9 - Hypothyroidism, unspecified (6) Diverticulosis Status: Acute (7) BPH (benign prostatic hyperplasia) Status: Acute Qualifiers: Lower urinary tract symptom detail: unspecified Plan: CONTINUE FLOMAX AND HYTRIN
[2023-06-02] MEDS: D5 1/2 NS 1,000 ML 1,000 ML IV SCH ×2 (01:47→06:25)
[2023-06-02] MEDS: ZOSYN VIAL 3.375 GRAMS 3.375 G in NS 100 ML IV 100 ML IV SCH (05:00)
[2023-06-02 06:19] LABS: BASOPHILS % (AUTO) 0.5 % (0.2-1.0); BLOOD UREA NITROGEN 10 mg/dL (7-18); CALCIUM 8.4 mg/dL (8.5-10.1); CARBON DIOXIDE 26.9 mmol/L (21-32); CHLORIDE 105 mmol/L (98-107); CREATININE 0.74 mg/dL (0.70-1.30); EOSINOPHILS # (AUTO) 0.5 x10^3/uL (0.0-0.2); EOSINOPHILS % (AUTO) 9.4 % (0.9-2.9); GLUCOSE 90 mg/dL (65-99); HEMATOCRIT 33.1 % (42.0-54.0); HEMOGLOBIN 11.2 g/dL (13.5-18.0); LYMPHOCYTES # (AUTO) 0.9 X10^3/uL (1.3-2.9); LYMPHOCYTES % (AUTO) 17.2 % (21.0-51.0); MEAN CORPUSCULAR HEMOGLOBIN 28.8 pg (27.0-34.0); MEAN CORPUSCULAR HGB CONC 33.9 g/dL (33.0-35.0); MEAN CORPUSCULAR VOLUME 85.1 fL (80.0-100.0); MEAN PLATELET VOLUME 8.5 fL (7.4-11.0); MONOCYTES # (AUTO) 0.4 x10^3/uL (0.3-0.8); MONOCYTES % (AUTO) 7.7 % (0.0-13.0); NEUTROPHILS # (AUTO) 3.3 x10^3/uL (2.2-4.8); NEUTROPHILS % (AUTO) 65.2 % (42.0-75.0); PLATELET COUNT 254 X10^3/uL (150.0-450.0); RED BLOOD COUNT 3.89 X10^6/uL (4.7-6.0); RED CELL DISTRIBUTION WIDTH 14.8 % (11.6-16.5); SODIUM 140 mmol/L (136-145); WHITE BLOOD COUNT 5.1 X10^3/uL (3.6-10.0); eGFR NON BLACK RACES > 60 (>60)
[2023-06-02] MEDS: HYTRIN PO SCH (08:20)
[2023-06-02] MEDS: ZESTRIL TAB 5 MG PO SCH (08:20)
[2023-06-02] MEDS: SYNTHROID 150 mcg TAB PO SCH (08:20)
[2023-06-02] MEDS: FLOMAX PO SCH (08:20)
[2023-06-02] MEDS: PROSCAR PO SCH (08:20)
[2023-06-02] MEDS ORDERED: DILAUDID INJ IVP PRN (08:27)
[2023-06-02] MEDS ORDERED: DILAUDID INJ ONE (08:30)
[2023-06-02] MEDS: LOVENOX INJ 40 MG SYR SC SCH (08:41)
--- NOTE | 2023-06-02 11:14 | W.DIS.FURT ---
Summary of Discharge Discharge Summary of Date Date of Exam: 06/02/23 Admission Date Date of Admission: 05/30/23 Admission Diagnosis Patient Problems (Updated 05/31/23 @ 15:08 by Manfred Zuñiga) Abdominal pain (Acute) R10.9 HTN (hypertension) (Acute) I10 Hypothyroidism (Acute) E03.9 Diverticulosis (Acute) K57.90 BPH (benign prostatic hyperplasia) (Acute) N40.0 Abdominal wall abscess (Acute) L02.211 Hospital Course: This 78 year old male has been seen by Dr. Rosen recently for a swelling in his left groin. There was some concern whether this was a hernia or not. CT scan was ordered but had not been completed. Patient presented on the day of admission, May 30 ,with redness and swelling and possible mass in the left groin consistent with an abscess. CT scan without contrast was also consistent with abscess. There was no obvious etiology of this abscess. He does have a past history of diverticulosis of the colon on recent colonoscopy. On May 30 he was taken to the operating suite and laparoscopy showed significant sigmoid diverticulosis with the sigmoid colon plastered against the left lower quadrant abdominal wall over the area of concern. There was no obvious inflammation or purulence . Abscess was incised and drained and only air came out. There was no obvious connection but I am concerned with this originating from diverticulosis as he has a very thin abdominal wall. He was treated with IV Zosyn and a wound vacuum. The cultures of the wound grew E. coli and he will be discharged home today with Home Health consultation do wound vacuum changes two to three times a week. He will be on PO ciprofloxacin 500 mg BID ( E. coli is sensitive to this ) . He will be given Percocet 5 mg tablets, one every six hours PRN pain. Follow up in one week. He may require laparoscopic sigmoid colectomy in the future. That will be discussed down the road. Vital Signs: Vital Signs (72 hours) 05/31/23 18:52 06/01/23 16:09 05/30/23 11:54 Temperature 97.8 F 97.9 F 97.7 F Pulse Rate 48 L 52 L 77 Pulse Rate [Left] Respiratory Rate 18 18 19 Blood Pressure 158/71 150/67 135/65 Blood Pressure [Left Arm] O2 Sat by Pulse Oximetry 96 98 94 L Oxygen Delivery Method Room Air Oxygen Flow Rate FIO2% 05/30/23 11:54 05/30/23 15:44 05/30/23 16:55 Temperature 97.4 F L Pulse Rate 78 Pulse Rate [Left] 77 55 L Respiratory Rate 18 Blood Pressure Blood Pressure [Left Arm] 160/70 O2 Sat by Pulse Oximetry 95 98 Oxygen Delivery Method Room Air Oxygen Flow Rate FIO2% 05/30/23 15:44 05/30/23 19:00 05/30/23 18:36 Temperature 98.9 F Pulse Rate 86 Pulse Rate [Left] Respiratory Rate 16 Blood Pressure 140/64 Blood Pressure [Left Arm] O2 Sat by Pulse Oximetry 99 Oxygen Delivery Method Room Air Nasal Cannula Aerosol Face Tent Oxygen Flow Rate 2 FIO2% 05/30/23 18:41 05/30/23 19:44 05/30/23 18:46 Temperature 99.5 F Pulse Rate 86 84 Pulse Rate [Left] 68 Respiratory Rate 16 20 18 Blood Pressure 146/65 125/60 Blood Pressure [Left Arm] 130/63 O2 Sat by Pulse Oximetry 99 94 L 100 Oxygen Delivery Method Aerosol Face Tent Room Air Aerosol Face Tent Oxygen Flow Rate FIO2% 05/30/23 18:51 05/30/23 18:56 05/30/23 19:01 Temperature Pulse Rate 80 75 71 Pulse Rate [Left] Respiratory Rate 18 18 18 Blood Pressure 127/60 122/56 122/60 Blood Pressure [Left Arm] O2 Sat by Pulse Oximetry 95 95 95 Oxygen Delivery Method Nasal Cannula Nasal Cannula Nasal Cannula Oxygen Flow Rate FIO2% 05/30/23 19:06 05/31/23 00:00 05/30/23 19:16 Temperature 97.7 F 99.5 F Pulse Rate 70 Pulse Rate [Left] 65 68 Respiratory Rate 16 20 20 Blood Pressure 119/58 Blood Pressure [Left Arm] 131/60 130/63 O2 Sat by Pulse Oximetry 95 98 94 L Oxygen Delivery Method Nasal Cannula Room Air Room Air Oxygen Flow Rate FIO2% 05/30/23 19:30 05/30/23 19:45 05/30/23 20:00 Temperature 99.4 F 98.9 F 98.9 F Pulse Rate Pulse Rate [Left] 64 64 59 L Respiratory Rate 20 20 20 Blood Pressure Blood Pressure [Left Arm] 121/59 120/59 112/52 O2 Sat by Pulse Oximetry 94 L 95 92 L Oxygen Delivery Method Room Air Room Air Room Air Oxygen Flow Rate FIO2% 05/30/23 20:15 05/30/23 21:15 05/30/23 22:15 Temperature 97.9 F 97.9 F 98.0 F Pulse Rate Pulse Rate [Left] 58 L 57 L 51 L Respiratory Rate 20 18 18 Blood Pressure Blood Pressure [Left Arm] 112/55 112/52 121/64 O2 Sat by Pulse Oximetry 94 L 99 99 Oxygen Delivery Method Room Air Room Air Room Air Oxygen Flow Rate FIO2% 05/30/23 23:15 05/31/23 00:15 05/31/23 04:00 Temperature 97.9 F 97.7 F 97.6 F Pulse Rate Pulse Rate [Left] 56 L 63 51 L Respiratory Rate 20 20 18 Blood Pressure Blood Pressure [Left Arm] 131/60 137/63 119/56 O2 Sat by Pulse Oximetry 98 98 96 Oxygen Delivery Method Room Air Room Air Room Air Oxygen Flow Rate FIO2% 05/31/23 07:00 05/31/23 07:10 05/31/23 09:35 Temperature 97.7 F Pulse Rate 52 L Pulse Rate [Left] 50 L Respiratory Rate 16 Blood Pressure Blood Pressure [Left Arm] 131/61 O2 Sat by Pulse Oximetry 96 96 Oxygen Delivery Method Nasal Cannula Room Air Oxygen Flow Rate 2 FIO2% 05/31/23 12:00 05/31/23 16:00 05/31/23 19:00 Temperature 99.8 F H 97.8 F Pulse Rate Pulse Rate [Left] 52 L 48 L Respiratory Rate 20 18 Blood Pressure Blood Pressure [Left Arm] 147/68 159/71 O2 Sat by Pulse Oximetry 97 96 Oxygen Delivery Method Room Air Room Air Nasal Cannula Oxygen Flow Rate 2 FIO2% 05/31/23 20:00 06/01/23 00:00 06/01/23 04:00 Temperature 97.7 F 97.7 F 97.9 F Pulse Rate Pulse Rate [Left] 52 L 50 L 52 L Respiratory Rate 20 20 18 Blood Pressure Blood Pressure [Left Arm] 159/69 149/67 163/70 O2 Sat by Pulse Oximetry 97 95 96 Oxygen Delivery Method Nasal Cannula Nasal Cannula Nasal Cannula Oxygen Flow Rate 2 2 2 FIO2% 06/01/23 07:00 06/01/23 08:00 06/01/23 11:59 Temperature 97.7 F 98.3 F Pulse Rate Pulse Rate [Left] 50 L 46 L Respiratory Rate 18 18 Blood Pressure Blood Pressure [Left Arm] 178/75 185/75 O2 Sat by Pulse Oximetry 93 L 95 Oxygen Delivery Method Nasal Cannula Nasal Cannula Nasal Cannula Oxygen Flow Rate 2 2 2 FIO2% 06/01/23 15:43 06/01/23 19:00 06/01/23 20:00 Temperature 97.9 F 97.7 F Pulse Rate Pulse Rate [Left] 52 L 50 L Respiratory Rate 18 20 Blood Pressure Blood Pressure [Left Arm] 150/67 173/78 O2 Sat by Pulse Oximetry 98 98 Oxygen Delivery Method Nasal Cannula Nasal Cannula Nasal Cannula Oxygen Flow Rate 2 2 2 FIO2% 06/02/23 00:00 06/01/23 21:00 06/02/23 04:00 Temperature 98.1 F 98 F Pulse Rate Pulse Rate [Left] 50 L 50 L Respiratory Rate 18 18 Blood Pressure Blood Pressure [Left Arm] 171/74 176/73 O2 Sat by Pulse Oximetry 95 95 Oxygen Delivery Method Nasal Cannula Nasal Cannula Nasal Cannula Oxygen Flow Rate 2 2 2 FIO2% 28 06/02/23 07:00 06/02/23 08:00 06/02/23 08:42 Temperature 97.2 F L Pulse Rate Pulse Rate [Left] 52 L Respiratory Rate 18 20 Blood Pressure Blood Pressure [Left Arm] 187/80 O2 Sat by Pulse Oximetry 97 Oxygen Delivery Method Nasal Cannula Nasal Cannula Oxygen Flow Rate 2 2 FIO2% 06/02/23 09:05 Temperature Pulse Rate Pulse Rate [Left] Respiratory Rate Blood Pressure Blood Pressure [Left Arm] O2 Sat by Pulse Oximetry Oxygen Delivery Method Nasal Cannula Oxygen Flow Rate 2 FIO2% 28 Labs: Laboratory Last Values WBC 5.1 X10^3/uL (3.6-10.0) 06/02/23 05:33 RBC 3.89 X10^6/uL (4.7-6.0) L 06/02/23 05:33 Hgb 11.2 g/dL (13.5-18.0) L 06/02/23 05:33 Hct 33.1 % (42.0-54.0) L 06/02/23 05:33 MCV 85.1 fL (80.0-100.0) 06/02/23 05:33 MCH 28.8 pg (27.0-34.0) 06/02/23 05:33 MCHC 33.9 g/dL (33.0-35.0) 06/02/23 05:33 RDW 14.8 % (11.6-16.5) 06/02/23 05:33 Plt Count 254 X10^3/uL (150.0-450.0) 06/02/23 05:33 MPV 8.5 fL (7.4-11.0) 06/02/23 05:33 Neut % (Auto) 65.2 % (42.0-75.0) 06/02/23 05:33 Lymph % (Auto) 17.2 % (21.0-51.0) L 06/02/23 05:33 [place] % (Auto) 7.7 % (0.0-13.0) 06/02/23 05:33 Eos % (Auto) 9.4 % (0.9-2.9) H 06/02/23 05:33 Baso % (Auto) 0.5 % (0.2-1.0) 06/02/23 05:33 Neut # (Auto) 3.3 x10^3/uL (2.2-4.8) 06/02/23 05:33 Lymph # (Auto) 0.9 X10^3/uL (1.3-2.9) L 06/02/23 05:33 [place] # (Auto) 0.4 x10^3/uL (0.3-0.8) 06/02/23 05:33 Eos # (Auto) 0.5 x10^3/uL (0.0-0.2) H 06/02/23 05:33 Baso # (Auto) 0.0 X10^3/uL (0.0-0.1) 06/02/23 05:33 Absolute Nucleated RBC 0.0 /100WBC 06/02/23 05:33 Sodium 140 mmol/L (136-145) 06/02/23 05:33 Corrected Sodium TNP 06/02/23 05:33 Potassium 4.0 mmol/L (3.5-5.1) 06/02/23 05:33 Chloride 105 mmol/L (98-107) 06/02/23 05:33 Carbon Dioxide 26.9 mmol/L (21-32) 06/02/23 05:33 BUN 10 mg/dL (7-18) 06/02/23 05:33 Creatinine 0.74 mg/dL (0.70-1.30) 06/02/23 05:33 Est GFR (MDRD) Af Amer > 60 (>60) 06/02/23 05:33 Est GFR (MDRD) Non-Af > 60 (>60) 06/02/23 05:33 Glucose 90 mg/dL (65-99) 06/02/23 05:33 POC Glucose (mg/dL) 96 mg/dL (65-99) 06/02/23 05:03 Calcium 8.4 mg/dL (8.5-10.1) L 06/02/23 05:33 Corrected Calcium 9.8 mg/dL (8.5-10.1) 05/31/23 04:38 Total Bilirubin 0.20 mg/dL (0.2-1.0) 05/31/23 04:38 AST 22 Units/L (15-37) 05/31/23 04:38 ALT 25 Units/L (12-78) 05/31/23 04:38 Alkaline Phosphatase 78 Units/L (46-116) 05/31/23 04:38 Total Protein 6.4 g/dL (6.4-8.2) 05/31/23 04:38 Albumin 2.4 g/dL (3.4-5.0) L 05/31/23 04:38 Globulin 4.0 g/dL (2.5-4.5) 05/31/23 04:38 Albumin/Globulin Ratio 0.6 Ratio (1.1-2.1) L 05/31/23 04:38 Specimen Type Catherized urine 05/30/23 18:00 Urine Color Yellow (YELLOW) 05/30/23 18:00 Urine Appearance Clear (CLEAR) 05/30/23 18:00 Urine pH 5.0 (5.0 - 8.0) 05/30/23 18:00 Ur Specific [place] 1.015 (1.000-1.030) 05/30/23 18:00 Urine Protein 2+ (NEGATIVE) 05/30/23 18:00 Urine Glucose (UA) Negative (NEGATIVE) 05/30/23 18:00 Urine Ketones Negative (NEGATIVE) 05/30/23 18:00 Urine Blood 2+ (NEGATIVE) 05/30/23 18:00 Urine Nitrite Negative (NEGATIVE) 05/30/23 18:00 Urine Bilirubin Negative (NEGATIVE) 05/30/23 18:00 Urine Urobilinogen Normal (NORMAL) 05/30/23 18:00 Ur Leukocyte Esterase Negative (NEGATIVE) 05/30/23 18:00 Urine RBC 3-5 /HPF (0-3) A 05/30/23 18:00 Urine WBC None seen /HPF (0-5) 05/30/23 18:00 Ur Squamous Epith Cells Rare /HPF (NEGATIVE) 05/30/23 18:00 Urine Bacteria Negative /HPF (NEGATIVE) 05/30/23 18:00 Ur Culture Indicated? No/not indicated 05/30/23 18:00 Reason For Visit: LEFT ABDOMBIAL WALL ABCESS Discharge Date Discharge Date: 06/02/23 Discharge Diagnosis All Active Problems (Updated 05/31/23 @ 15:08 by Manfred Zuñiga) Abdominal pain (Acute) HTN (hypertension) (Acute) Hypothyroidism (Acute) Diverticulosis (Acute) BPH (benign prostatic hyperplasia) (Acute) Abdominal wall abscess (Acute) Plan of Treatment: Continue with present treatment and follow up plan. Pt is to keep follow up appointment as instructed and take medications as ordered. Discharge Medications Discharge Medications: No Known Allergies Allergy (Verified 11/26/22 07:42) CONTINUE taking the following medications tamsulosin 0.4 mg capsule 0.4 mg PO BID 05/30/23 [History] New Prescriptions ciprofloxacin HCl 500 mg tablet 500 mg PO BID #28 tabs 06/02/23 [Rx] lisinopril 10 mg tablet 10 mg PO QDAY #30 tabs 06/02/23 [Rx] Percocet, 5 mg , 1 po q 6 Hr PRN pain Discharge Disposition Assessment: Home with Home Health. See hospital course. Discharge Plan Discharge Plan Hospital Course: This 78 year old male has been seen by Dr. Rosen recently for a swelling in his left groin. There was some concern whether this was a hernia or not. CT scan was ordered but had not been completed. Patient presented on the day of admission, May 30 ,with redness and swelling and possible mass in the left groin consistent with an abscess. CT scan without contrast was also consistent with abscess. There was no obvious etiology of this abscess. He does have a past history of diverticulosis of the colon on recent colonoscopy. On May 30 he was taken to the operating suite and laparoscopy showed significant sigmoid diverticulosis with the sigmoid colon plastered against the left lower quadrant abdominal wall over the area of concern. There was no obvious inflammation or purulence . Abscess was incised and drained and only air came out. There was no obvious connection but I am concerned with this originating from diverticulosis as he has a very thin abdominal wall. He was treated with IV Zosyn and a wound vacuum. The cultures of the wound grew E. coli and he will be discharged home today with Home Health consultation do wound vacuum changes two to three times a week. He will be on PO ciprofloxacin 500 mg BID ( E. coli is sensitive to this ) . He will be given Percocet 5 mg tablets, one every six hours PRN pain. Follow up in one week. He may require laparoscopic sigmoid colectomy in the future. That will be discussed down the road. Patient Disposition: HOME HEALTH SERVICE Condition: Stable Health Concerns: Post Hospitalization: new medications and changes needed to prevent readmission or further decline. Pt educated and given instructions on all concerns. Care Plan Goals: Problem: Infection Goal: Temperature within normal limits. Resolved infection. Instructions: Follow provided instructions. Follow up with primary physician as directed. Contact primary care physician or report to the closest Emergency Room if condition worsens. Plan of Treatment: Continue with present treatment and follow up plan. Pt is to keep follow up appointment as instructed and take medications as ordered. Assessment: Home with Home Health. See hospital course. Prescription drug monitoring program results: PDMP reviewed with concerns identified Prescriptions: New ciprofloxacin HCl 500 mg Tablet 500 mg PO BID Qty: 28 0RF Rx Instructions: TAKE ONE TABLET TWICE A DAY X 14 DAYS lisinopril 10 mg Tablet 10 mg PO QDAY Qty: 30 3RF Rx Instructions: TAKE ONE TABLET DAILY ciprofloxacin HCl [Cipro] 500 mg tablet 500 mg PO BID Qty: 20 0RF oxycodone-acetaminophen [Percocet] 5-325 mg tablet 1 tab PO Q6H MDD 4 PRNQty: 30 0RF Continued meloxicam 15 mg tablet 15 mg PO QDAY Qty: 30 0RF levothyroxine 150 mcg tablet 150 mcg PO QDAY Qty: 30 0RF terazosin 5 mg capsule 5 mg PO QDAY Qty: 30 0RF finasteride 5 mg tablet 5 mg PO QDAY Qty: 30 0RF tamsulosin 0.4 mg capsule 0.4 mg PO BID Follow ups/Referrals Follow ups/Referrals: [facility] [Other] Manfred Zuñiga [Primary Care Provider] - (Follow up as needed.) Bon Clemens [STAFF PHYSICIAN] - 06/08/23 4:00 pm Instructions Instructions: Negative Pressure Wound Therapy Home Guide, Skin Abscess, [id number], Incision and Drainage, Care After Activity Restrictions/Additional Instructions: DIET TOLERATED. ACTIVITY TOLERATED. Stand Alone Forms: Post Hospital Follow Up Care
[2023-06-02 11:52] VITALS: BP 133/62; PULSE 49; RESP 18; TEMP 97.9; O2SAT 92
== END 2023-06-02 15:25 | disposition home health service (06) | DRG 581 ==
LOC: ER 11:47 → MED/SURG 15:16
PROVIDERS: ADMIT Internal Medicine; ATTEND Internal Medicine